=== PATIENT | male | born 2000 | race Caucasian/White ===

== ENCOUNTER 2019-12-17 08:13 | Emergency (ER) | payer OTHER, MEDICAID ==
[~2019-12-17] VITALS: Ht 167.6 cm; Wt 90.7 kg
[2019-12-17] MEDS ORDERED: ZYPREXA15 MG PO (08:39)
[2019-12-17] MEDS ORDERED: PAXIL40 MG PO (08:40)
[2019-12-17] MEDS ORDERED: BUSPIRONE HCL10 MG PO (08:40)
[2019-12-17] MEDS ORDERED: UNISOM50 MG PO (08:41)
== END 2019-12-17 09:41 | disposition home or self-care (01) ==
LOC: ED 08:13
PROC: 0HQ0XZZ Repair Scalp Skin, External Approach (ICD-10-PCS; principal; 2019-12-17)
DX: S01.01XA Laceration without foreign body of scalp, initial encounter (principal); S16.1XXA Strain of muscle, fascia and tendon at neck level, initial encounter; S40.212A Abrasion of left shoulder, initial encounter; Z23 Encounter for immunization; F32.9 Major depressive disorder, single episode, unspecified; Z87.891 Personal history of nicotine dependence; Z79.899 Other long term (current) drug therapy; Y04.2XXA Assault by strike against or bumped into by another person, initial encounter
CPT/HCPCS: 12004; 70450; 72040; 73030; 90471; 90715; 99284-25